=== PATIENT | female | born 1980 | race Asian ===

== ENCOUNTER 2017-04-13 19:13 | Emergency (ER) | payer OTHER ==
[~2017-04-13] VITALS: Ht 160 cm; Wt 70.0 kg
[2017-04-13] MEDS ORDERED: SODIUM CHLORIDE 0.9% 1,000ML IVBOLUS ONE (19:30)
[2017-04-13] MEDS ORDERED: PLEASE ENTER ALLERGIES MC SCH ×2 (20:00)
[2017-04-13 20:49] LABS: HEMATOCRIT 39.5 % (34.6-47.8); HEMOGLOBIN 13.4 g/dL (11.7-16.4); WHITE BLOOD COUNT 7.1 x10^3/uL (3.4-10)
[2017-04-13 21:00] LABS: BLOOD UREA NITROGEN 7 mg/dL (7-18)
[2017-04-13 21:06] LABS: IS PT STATUS REG ER OR PRE ER? YES
[2017-04-13 21:30] VITALS: BP 106/56
== END 2017-04-13 21:55 | disposition home or self-care (01) ==
LOC: ED 21:35
DX: R55 Syncope and collapse (principal); R94.31 Abnormal electrocardiogram [ECG] [EKG]
CPT/HCPCS: 36415; 80048; 82040; 84484; 85025; 93005; 99285; J7030